=== PATIENT | female | born 1970 | race Caucasian/White ===

== ENCOUNTER → 2020-04-17 15:21 | Outpatient (CLI) | payer OTHER, SELFPAY ==
[2020-04-17 16:04] LABS: Add Manual Diff / Slide Review NO; Basophils Absolute Auto 0 /uL (0-100); Basophils Percent Auto 0.7 % (0-2); Eosinophils Absolute Auto 100 /uL (0-450); Eosinophils Percent Auto 3.1 % (2-4); Hematocrit 28.9 % (36-46); Hemoglobin 9.1 g/dL (12.0-16.0); Lymphocytes Absolute Auto 1300 /uL (1100-4500); Lymphocytes Percent Auto 31.3 % (25-40); Mean Corpuscular HGB Conc 31.5 % (30-36); Mean Corpuscular Volume 79.3 fL (80-100); Monocytes Absolute Auto 300 /uL (0-900); Monocytes Percent Auto 7.1 % (3-14); Neutrophils Absolute Auto 2400 /uL (1500-7000); Neutrophils Percent Auto 57.8 % (50-75); Platelet Count 216 X10^3/uL (150-400); Red Blood Cell Count 3.65 X10^6/uL (4.0-5.2); Red Cell Distribution Width 18.5 % (11.6-14.8); White Blood Cell Count 4.2 X10^3/uL (4.5-11.0)
[2020-04-17 16:37] LABS: Alanine Aminotransferase 11 IU/L (<35); Albumin 4.4 g/dL (3.5-5.0); Albumin Globulin Ratio 1.7 (1.0-2.8); Alkaline Phosphatase 45 U/L (38-126); Aspartate Aminotransferase 23 IU/L (14-36); Bilirubin Total 0.7 mg/dL (0.2-1.3); Blood Urea Nitrogen 8 mg/dL (7-17); Calcium 9.7 mg/dL (8.4-10.2); Carbon Dioxide 28 mmol/L (22-32); Chloride 104 mmol/L (98-107); Estimated Glomerular Filt Rate > 60.0 mL/min (>60); Globulin 2.6 g/dL (1.7-4.1); Glucose 96 mg/dL (70-100); HEMOLYSIS < 15 (0-50); Potassium 4.5 mmol/L (3.4-5.1); Sodium 137 mmol/L (137-145)
[2020-04-17 17:08] LABS: TSH w/ Reflex to FT4 2.44 uIU/mL (0.47-4.68)
== END ==
PROVIDERS: PCP Registered Nurse; Referring Provider Registered Nurse; Visit Provider Registered Nurse
DX: R53.83 Other fatigue (principal); D64.9 Anemia, unspecified
CPT/HCPCS: 36415; 80053; 84443; 85025

== ENCOUNTER → 2021-07-10 10:36 | Outpatient (CLI) | payer OTHER, SELFPAY ==
[2021-07-10 11:35] LABS: Hematocrit 39.8 % (36-46); Hemoglobin 13.5 g/dL (12.0-16.0); Mean Corpuscular HGB Conc 33.9 % (30-36); Mean Corpuscular Hemoglobin 32.6 PG (26-34); Mean Corpuscular Volume 96.1 fL (80-100); Platelet Count 178 X10^3/uL (150-400); Red Blood Cell Count 4.14 X10^6/uL (4.0-5.2); Red Cell Distribution Width 12.7 % (11.6-14.8); White Blood Cell Count 4.3 X10^3/uL (4.5-11.0)
[2021-07-10 12:07] LABS: Reticulocyte Count, Percent 1.2 % (1.06-2.63)
[2021-07-10 12:09] LABS: HEMOLYSIS 16 (0-50); Iron 210 ug/dL (37-170)
[2021-07-10 12:12] LABS: Cholesterol 193 mg/dL (140-199); Triglycerides 88 mg/dL (35-150)
[2021-07-10 12:23] LABS: LDL Cholesterol Calculated 65 mg/dL (<100); Total Iron Binding Capacity 267 ug/dL (265-497); Transferrin 221 mg/dL (206-381)
[2021-07-10 12:25] LABS: Percent Iron Saturation 79 % (15-50)
[2021-07-10 12:27] LABS: HDL Cholesterol 110 mg/dL (40-60)
[2021-07-10 13:00] LABS: Vitamin B12 233 pg/mL (239-931)
== END ==
PROVIDERS: PCP Student in an Organized Health Care Education/Training Program; Referring Provider Student in an Organized Health Care Education/Training Program; Visit Provider Student in an Organized Health Care Education/Training Program
DX: D64.9 Anemia, unspecified (principal); F33.0 Major depressive disorder, recurrent, mild; Z13.220 Encounter for screening for lipoid disorders
CPT/HCPCS: 36415; 80061; 82607; 83540; 83550; 85027; 85045

== ENCOUNTER → 2021-08-22 14:05 | Outpatient (ROUT) | payer OTHER, SELFPAY ==
[2021-08-23 10:44] LABS: Fecal Immunochemical Test Negative (Negative)
== END ==
PROVIDERS: PCP Student in an Organized Health Care Education/Training Program; Visit Provider Student in an Organized Health Care Education/Training Program
DX: Z12.11 Encounter for screening for malignant neoplasm of colon (principal)
CPT/HCPCS: 82274

== ENCOUNTER → 2021-08-30 11:02 | Outpatient (CLI) | payer OTHER, SELFPAY ==
--- NOTE | 2021-08-30 11:03 | DI.MG.S_ITS ---
BILATERAL DIGITAL SCREENING MAMMOGRAM 3D/2D WITH CAD: 08/30/2021 CLINICAL: Routine screening. Comparison is made to exams dated: 12/10/2017 mammogram - [facility], 12/07/2014 mammogram, and 10/22/2012 mammogram - [facility]. The tissue of both breasts is heterogeneously dense. This may lower the sensitivity of mammography. Current study was also evaluated with a Computer Aided Detection (CAD) system. There are benign appearing diffuse calcifications in the right breast. There are possible regional heterogeneous punctate calcifications in the left breast at 1 o'clock middle depth. No other significant masses, calcifications, or other findings are seen in either breast. IMPRESSION: INCOMPLETE: NEEDS ADDITIONAL IMAGING EVALUATION The possible regional heterogeneous punctate calcifications in the left breast are indeterminate. Diagnostic mammogram for additional views to include mediolateral and spot magnification views is recommended. This exam was interpreted at Station ID: [id number]. NOTE: For mammograms, a report in lay terms will be sent to the patient. Approximately 15% of breast malignancies will not be visualized mammographically. In the management of a palpable breast mass, a negative mammogram must not discourage biopsy of a clinically suspicious lesion. Electronically Signed By: Ike Aguilar M.D. aty/:08/30/2021 13:02:25 letter sent: Additional Imaging Needed ACR BI-RADS Category 0: Incomplete [id number]
== END ==
PROVIDERS: PCP Student in an Organized Health Care Education/Training Program; Referring Provider Student in an Organized Health Care Education/Training Program; Visit Provider Student in an Organized Health Care Education/Training Program
DX: Z12.31 Encounter for screening mammogram for malignant neoplasm of breast (principal)
CPT/HCPCS: 77063; 77067

== ENCOUNTER → 2021-09-26 09:23 | Outpatient (CLI) | payer OTHER, SELFPAY ==
--- NOTE | 2021-09-26 | DI.MG.S_ITS ---
UNILATERAL LEFT DIGITAL DIAGNOSTIC MAMMOGRAM 3D/2D WITH ADDITIONAL VIEWS: 09/26/2021 CLINICAL: Additional evaluation requested from prior study. Comparison is made to exams dated: 08/30/2021 mammogram - [facility], 12/10/2017 mammogram - [facility], and 12/07/2014 mammogram - [facility]. The tissue of left breast is extremely dense, which lowers the sensitivity of mammography. There are regional fine punctate calcifications in the left breast in the upper outer quadrant centered at 1 o'clock anterior depth. Several of these calcifications were present on the prior studies but comparison is limited by absence of prior magnification views. No other significant masses or calcifications are seen in the breast. IMPRESSION: PROBABLY BENIGN The regional fine punctate calcifications in the left breast are probably benign. A follow-up mammogram in 6 months is recommended. A follow-up mammogram in 6 months is recommended to demonstrate stability. This exam was interpreted at Station ID: [id number]. NOTE: For mammograms, a report in lay terms will be sent to the patient. Approximately 15% of breast malignancies will not be visualized mammographically. In the management of a palpable breast mass, a negative mammogram must not discourage biopsy of a clinically suspicious lesion. Electronically Signed By: Salvador daugherty/:09/26/2021 10:01:23 letter sent: Followup Recommended ACR BI-RADS Category 3: Probably benign [id number]
== END ==
PROVIDERS: PCP Student in an Organized Health Care Education/Training Program; Referring Provider Student in an Organized Health Care Education/Training Program; Visit Provider Student in an Organized Health Care Education/Training Program
DX: R92.1 Mammographic calcification found on diagnostic imaging of breast (principal)
CPT/HCPCS: 77065; G0279

== ENCOUNTER → 2022-05-08 13:33 | Outpatient (CLI) | payer OTHER, SELFPAY ==
--- NOTE | 2022-05-08 13:35 | DI.MG.S_ITS ---
UNILATERAL LEFT DIGITAL DIAGNOSTIC MAMMOGRAM 3D/2D: 05/08/2022 CLINICAL: Short term follow up for the left breast. Comparison is made to exams dated: 09/26/2021 mammogram, 08/30/2021 mammogram - [facility], 12/10/2017 mammogram - [facility], and 12/07/2014 mammogram - [facility]. The left breast is extremely dense, which lowers the sensitivity of mammography (category d />75% glandular tissue). There are stable regional fine punctate calcifications in the left breast at 1 o'clock anterior depth. No other significant masses or calcifications are seen in the breast. IMPRESSION: PROBABLY BENIGN The stable regional fine punctate calcifications in the left breast are probably benign. A follow-up mammogram in 6 months is recommended to demonstrate stability. Based on Tyrer-Cuzick model (a risk assessment model), the patient's lifetime risk is 20.8% and her 10 year risk is 4.9%. If a patient has an elevated risk, a more comprehensive evaluation should be considered and/or a referral to a genetic counselor. The [place] [employer], [employer] [employer], and NCCN Guidelines advise the consideration of Breast MRI as an adjunct to screening mammography in patients whose Lifetime risk to develop breast cancer is 20% or higher. This exam was interpreted at Station ID: [id number]. NOTE: For mammograms, a report in lay terms will be sent to the patient. Approximately 15% of breast malignancies will not be visualized mammographically. In the management of a palpable breast mass, a negative mammogram must not discourage biopsy of a clinically suspicious lesion. SUMMARY: The patient will be due for her bilateral mammogram at this time. Electronically Signed By: Martha landon/:05/08/2022 14:10:24 letter sent: Followup Recommended ACR BI-RADS Category 3: Probably benign [id number]
== END ==
PROVIDERS: PCP Physician Assistant; Referring Provider Student in an Organized Health Care Education/Training Program; Visit Provider Student in an Organized Health Care Education/Training Program
DX: R92.8 Other abnormal and inconclusive findings on diagnostic imaging of breast (principal); R92.1 Mammographic calcification found on diagnostic imaging of breast
CPT/HCPCS: 77065; G0279

== ENCOUNTER → 2022-10-07 12:40 | Outpatient (CLI) | payer OTHER, SELFPAY ==
--- NOTE | 2022-10-07 12:42 | DI.MRI.S_ITS ---
PROCEDURE: MR HEAD/BRAIN WO/W CON INDICATIONS: White matter disease, unspecified TECHNIQUE: Noncontrast axial T1 spin echo, axial T2 fast spin echo, sagittal and axial FLAIR, coronal T2 fast spin echo, axial gradient echo, axial diffusion and ADC through the brain. After the administration of contrast, axial and coronal and sagittal 3D VIBE or T1 spin echo with fat saturation through the brain. COMPARISON: [facility], , MRI BRAIN (IAC) W/WO CONTRAST, 09/17/2015, 13:02. FINDINGS: Image quality: Excellent. CSF Spaces: Basal cisterns are patent. No extra-axial fluid collections. Ventricles are normal in size and shape. Brain: Numerous foci of abnormal T2 weighted hyperintensity can be seen, which are primarily seen within the periventricular deep white matter. A few of the periventricular lesions demonstrate a perpendicular orientation to the lateral ventricles. Several peripheral lesions are also seen. There is a mild amount of involvement of the corpus callosum seen. No definite lesions can be seen within the brainstem or within the cerebellum. These lesions are clearly increased in number compared to 2016. Several of the larger lesions demonstrate low signal on T1 weighted imaging. These lesions do not enhance. No midline shift. No intracranial bleeds or masses. No abnormal intracranial enhancement. The brainstem appears normal. Diffusion-weighted images demonstrate no acute ischemic insults. No chronic ischemic insults. Normal intravascular flow voids are present. Skull and face: Calvarial marrow is normal in signal. Orbits appear normal. Sinuses: Sinuses and mastoids appear clear. IMPRESSION: Clear interval progression of white matter disease compared to 2016. Given the appearance and the age and gender of the patient, multiple sclerosis is strongly suspected. These lesions do not enhance. Dictated by: Christoph Hall M.D. on 10/07/2022 at 13:48 Approved by: Christoph Hall M.D. on 10/07/2022 at 13:50
== END ==
PROVIDERS: PCP Physician Assistant; Referring Provider Physician Assistant; Visit Provider Physician Assistant
DX: R90.82 White matter disease, unspecified (principal)
CPT/HCPCS: 70553

== ENCOUNTER → 2022-11-18 15:21 | Outpatient (CLI) | payer OTHER, SELFPAY ==
--- NOTE | 2022-11-18 15:22 | DI.MRI.S_ITS ---
PROCEDURE: MR THORACIC SPINE WO/W CON INDICATIONS: White matter disease TECHNIQUE: Noncontrast sagittal T1 spin echo and T2 fast spin echo, sagittal STIR, axial T1 and T2 fast spin echo through the thoracic spine. After the administration of contrast, axial and sagittal T1 spin echo with fat saturation through the thoracic spine. COMPARISON: [facility], MR, MR CERVICAL SPINE WO/W CON, 11/18/2022, 16:42. [facility], MR, MR HEAD/BRAIN WO/W CON, 10/07/2022, 13:01. [facility], MR, C-SPINE W&WO CONTRAST, 10/18/2015, 17:19. [facility], RG, MRI BRAIN (IAC) W/WO CONTRAST, 09/17/2015, 13:02. [facility], MR, T-SPINE W&WO CONTRAST, 10/18/2015, 17:41. FINDINGS: Image quality: Excellent. Alignment and curvature: There is normal bony alignment. Marrow: Marrow is of normal overall signal. No acute vertebral body compression fractures. Spinal cord: Visualized spinal cord is of normal signal and size, without abnormal enhancement. Paraspinous soft tissues: No paravertebral masses or abnormal enhancement. Miscellaneous: Central canal and foramina appear widely patent at all scanned levels. IMPRESSION: No visualized white matter lesions within the thoracic cord. Dictated by: Ruthann Moreno M.D. on 11/19/2022 at 12:17 Approved by: Ruthann Moreno M.D. on 11/19/2022 at 12:21
--- NOTE | 2022-11-18 15:22 | DI.MRI.S_ITS ---
PROCEDURE: MR CERVICAL SPINE WO/W CON INDICATIONS: White matter disease TECHNIQUE: Noncontrast sagittal T1 spin echo and T2 fast spin echo, sagittal STIR, sagittal PD fast spin echo, foraminal oblique sagittal T2 fast spin echo, axial gradient echo or T2 fast spin echo through the cervical spine. After the administration of contrast, sagittal and axial T1 spin echo with fat saturation through the cervical spine. COMPARISON: [facility], MR, MR THORACIC SPINE WO/W CON, 11/18/2022, 16:59. [facility], MR, MR HEAD/BRAIN WO/W CON, 10/07/2022, 13:01. [facility], MR, C-SPINE W&WO CONTRAST, 10/18/2015, 17:19. FINDINGS: Image quality: Excellent. Alignment and curvature: There is overall appearance of cervical straightening. Marrow: Marrow demonstrates normal overall signal. Spinal cord: Visualized spinal cord is normal in size, without white matter lesions. No suspicious intramedullary enhancement. No cerebellar tonsillar herniation. Paraspinous soft tissues: No paravertebral masses or suspicious enhancement. C2-C3: No disc bulge, spinal stenosis or foraminal narrowing. C3-C4: No disc bulge, spinal stenosis or foraminal narrowing. C4-C5: Minimal disc bulge without spinal stenosis or foraminal narrowing. C5-C6: Minimal disc bulge without spinal stenosis or foraminal narrowing. C6-C7: No disc bulge, spinal stenosis or foraminal narrowing. C7-T1: No disc bulge, spinal stenosis or foraminal narrowing. IMPRESSION: Stable interval exam demonstrating no visualized definitive lesions within the cervical cord. Dictated by: Ruthann Moreno M.D. on 11/19/2022 at 12:14 Approved by: Ruthann Moreno M.D. on 11/19/2022 at 12:17
== END ==
PROVIDERS: PCP Physician Assistant; Referring Provider Physician Assistant; Visit Provider Physician Assistant
DX: R90.82 White matter disease, unspecified (principal)
CPT/HCPCS: 72156; 72157

== ENCOUNTER → 2024-06-08 15:07 | Outpatient (CLI) | payer OTHER, SELFPAY ==
--- NOTE | 2024-06-08 15:10 | DI.MG.S_ITS ---
BILATERAL DIGITAL SCREENING MAMMOGRAM 3D/2D WITH CAD: 06/08/2024 CLINICAL: Routine screening. Comparison is made to exams dated: 08/30/2021 mammogram, 05/08/2022 mammogram, 09/26/2021 mammogram - [facility], 12/10/2017 mammogram - [facility], 12/07/2014 mammogram, and 10/22/2012 mammogram - [facility]. The breasts are heterogeneously dense, which may obscure small masses (category c / 51-75% glandular tissue). Current study was also evaluated with a Computer Aided Detection (CAD) system. No significant masses, calcifications, or other findings are seen in either breast. There has been no significant interval change. IMPRESSION: NEGATIVE There is no mammographic evidence of malignancy. A 1 year screening mammogram is recommended. Based on the Tyrer Cuzick model (a risk assessment model) the patient's lifetime risk is 14.1% and her 10 year risk is 3.5%. According to the ACR, ACS, and NCCN guidelines, an annual breast MRI exam along with mammogram is recommended if the patient's lifetime risk is 20% or greater. This exam was interpreted at Station ID: [id number]. NOTE: For mammograms, a report in lay terms will be sent to the patient. Approximately 15% of breast malignancies will not be visualized mammographically. In the management of a palpable breast mass, a negative mammogram must not discourage biopsy of a clinically suspicious lesion. Electronically Signed By: Lenore Knowles M.D., Ph.D. bryant/kacey:06/10/2024 10:22:23 letter sent: Normal Exam ACR BI-RADS Category 1: Negative
== END ==
PROVIDERS: PCP Physician Assistant Medical; Referring Provider Physician Assistant Medical; Visit Provider Physician Assistant Medical
DX: Z12.31 Encounter for screening mammogram for malignant neoplasm of breast (principal); R92.333 Mammographic heterogeneous density, bilateral breasts
CPT/HCPCS: 77063; 77067